=== PATIENT | female | born 1970 | race Caucasian/White ===

== ENCOUNTER 2023-12-16 09:36 | Inpatient (IN) | payer OTHER ==
[2023-12-16] VITALS (9 sets, daily range): BP systolic 114–129; BP diastolic 53–68; PULSE 62–84; RESP 16–18; TEMP 97.7–98.1; O2SAT 96–100
[~2023-12-16] VITALS: Ht 172.7 cm; Wt 90.7 kg
[~2023-12-16 09:36] MED LIST: ALLEGRA60 MG PO; BENADRYL 25 MG; KEPPRA250 MG PO; KEPPRA500 MG PO
[2023-12-16] MEDS ORDERED: [UNRECOGNIZED DRUG - OTHER] SC (12:33)
[2023-12-16] MEDS ORDERED: [UNRECOGNIZED DRUG - OTHER] TOP (12:33)
[2023-12-16] MEDS ORDERED: METHADONE HCL5 MG PO (12:33)
[2023-12-16] MEDS ORDERED: CLOBETASOL1 EA/15 GM PO (12:33)
[2023-12-16] MEDS ORDERED: VITAMIN D250 MC1 PO (12:33)
[2023-12-16] MEDS ORDERED: CYMBALTA30 MG PO ×2 (12:33)
[2023-12-16] MEDS ORDERED: ATORVASTATIN CA10 MG PO (12:33)
[2023-12-16] MEDS ORDERED: VITAMIN C500 MG PO (12:33)
[2023-12-16] MEDS ORDERED: MODAFINIL100 MG PO (12:33)
[2023-12-16] MEDS ORDERED: HYDRALAZINE HCL 20 MG/ML VIAL IV PRN (12:45)
[2023-12-16] MEDS ORDERED: ONDANSETRON HCL INJ 2MG/ML 2ML 2 MG/ML VIAL IV PRN (12:45)
[2023-12-16] MEDS ORDERED: BISACODYL 10 MG SUPP PR PRN (12:45)
[2023-12-16] MEDS ORDERED: ACETAMINOPHEN 325 MG TAB PO PRN (12:45)
[2023-12-16] MEDS ORDERED: Morphine 2mg Syringe 2 MG/ML SYR IV PRN (13:00)
[2023-12-16] MEDS ORDERED: CLINDAMYCIN PHOS 900MG/ 50ML 50 ML IV SCH (14:00)
[2023-12-16 15:15] LABS: BASOPHILS % 0.4 % (0.0-1.0); EOSINOPHILS # (AUTO) 0.1 (0.0-0.4); EOSINOPHILS % 2.4 % (0.0-6.0); HEMATOCRIT 41.2 % (34.2-44.1); HEMOGLOBIN 13.4 g/dL (12.0-16.0); LYMPHOCYTES # (AUTO) 1.8 (1.0-3.2); LYMPHOCYTES % 32.5 % (18.0-39.1); MEAN CORPUSCULAR HEMOGLOBIN 30.1 pg (28-32); MEAN CORPUSCULAR HGB CONC 32.5 g/dL (31-35); MEAN CORPUSCULAR VOLUME 92.6 fL (81-99); MONOCYTES # (AUTO) 0.4 (0.2-0.8); MONOCYTES % 6.5 % (4.4-11.3); NEUTROPHILS # (AUTO) 3.1 (2.1-6.9); PLATELET COUNT 146 x10e3/uL (140-360); RED BLOOD COUNT 4.45 x10e6/uL (3.6-5.1); WHITE BLOOD COUNT 5.39 x10e3/uL (4.8-10.8)
[2023-12-16] MEDS ORDERED: [UNRECOGNIZED DRUG - OTHER] SC SCH (15:15)
[2023-12-16 15:32] LABS: ALBUMIN 3.1 g/dL (3.5-5.0); ALBUMIN/GLOBULIN RATIO 0.7 (0.8-2.0); ANION GAP 14.1 mmol/L (8-16); BILIRUBIN,TOTAL 0.4 mg/dL (0.2-1.2); CREATININE, SERUM 0.74 mg/dL (0.57-1.11); POTASSIUM 4.1 mmol/L (3.5-5.1); TOTAL PROTEIN 7.3 g/dL (6.5-8.1)
[2023-12-16 15:51] LABS: ERYTHROCYTE SEDIMENTATION RATE 31 mm/hr (0-20)
[2023-12-16] MEDS ORDERED: ALBUTEROL 90 MCG/ACT INHALER INH PRN (16:30)
[2023-12-16] MEDS: HYDROCODONE/APAP 5MG-325MG TAB PO PRN (16:36)
[2023-12-16] MEDS ORDERED: DULOXETINE HCL 30 MG DELAYED RELEASE PO SCH ×2 (18:00→21:00)
[2023-12-16] MEDS: CLINDAMYCIN PHOS 900MG/ 50ML 50 ML IV SCH (18:21)
[2023-12-16] MEDS ORDERED: CLOBETASOL PROPIONATE 0.05% CRM 15 GM TUBE TOP PRN (18:30)
[2023-12-16] MEDS: DULOXETINE HCL 30 MG DELAYED RELEASE PO SCH (20:55)
[2023-12-16] MEDS: METHADONE HCL 5 MG TAB PO SCH (20:56)
[2023-12-16] MEDS: ATORVASTATIN 10 MG TAB PO SCH (20:56)
[2023-12-16] MEDS: LEVETIRACETAM 500 MG TAB PO SCH (21:00)
[2023-12-16] MEDS ORDERED: ATORVASTATIN 10 MG TAB PO SCH (21:00)
[2023-12-17] VITALS (7 sets, daily range): BP systolic 112–134; BP diastolic 57–79; PULSE 61–75; RESP 17–18; TEMP 97.5–98.1; O2SAT 98–100
[2023-12-17 05:54] LABS: BASOPHILS % 0.4 % (0.0-1.0); EOSINOPHILS # (AUTO) 0.2 (0.0-0.4); EOSINOPHILS % 3.4 % (0.0-6.0); HEMATOCRIT 36.8 % (34.2-44.1); HEMOGLOBIN 12.4 g/dL (12.0-16.0); LYMPHOCYTES # (AUTO) 2.2 (1.0-3.2); LYMPHOCYTES % 43.6 % (18.0-39.1); MEAN CORPUSCULAR HEMOGLOBIN 30.7 pg (28-32); MEAN CORPUSCULAR HGB CONC 33.7 g/dL (31-35); MEAN CORPUSCULAR VOLUME 91.1 fL (81-99); MONOCYTES # (AUTO) 0.4 (0.2-0.8); MONOCYTES % 8.3 % (4.4-11.3); NEUTROPHILS # (AUTO) 2.2 (2.1-6.9); NEUTROPHILS % 44.1 % (38.7-80.0); PLATELET COUNT 146 x10e3/uL (140-360); RED BLOOD COUNT 4.04 x10e6/uL (3.6-5.1); RED CELL DISTRIBUTION WIDTH 11.9 % (11.7-14.4); WHITE BLOOD COUNT 4.93 x10e3/uL (4.8-10.8)
[2023-12-17 06:13] LABS: ALBUMIN 2.8 g/dL (3.5-5.0); ALBUMIN/GLOBULIN RATIO 0.8 (0.8-2.0); ANION GAP 12.2 mmol/L (8-16); BILIRUBIN,TOTAL 0.4 mg/dL (0.2-1.2); CALCIUM 8.7 mg/dL (8.4-10.2); CREATININE, SERUM 0.67 mg/dL (0.57-1.11); POTASSIUM 4.2 mmol/L (3.5-5.1); TOTAL PROTEIN 6.5 g/dL (6.5-8.1)
[2023-12-17 07:12] LABS: CHOL/HDL RATIO 3.6 (3.0-3.6)
[2023-12-17] MEDS: MODAFINIL 100 MG TAB PO SCH (08:59)
[2023-12-17] MEDS: DOCUSATE SODIUM 100 MG CAP PO SCH (08:59)
[2023-12-17] MEDS: ASCORBIC ACID 500 MG TAB PO SCH (08:59)
[2023-12-17] MEDS: CHOLECALCIFEROL 1,000 UNIT TAB PO SCH (09:00)
[2023-12-17] MEDS ORDERED: DULOXETINE HCL 30 MG DELAYED RELEASE PO SCH (09:00)
[2023-12-17] MEDS: SENNOSIDES 8.6 MG TAB PO SCH (09:00)
[2023-12-17] MEDS ORDERED: LEVETIRACETAM 500 MG TAB PO SCH (09:00)
[2023-12-17] MEDS: DULOXETINE HCL 30 MG DELAYED RELEASE PO SCH ×2 (09:00→20:47)
[2023-12-17] MEDS ORDERED: MUPIROCIN 2% OINT 22 GM TUBE TOP SCH (09:00)
[2023-12-17] MEDS: MUPIROCIN 2% OINT 22 GM TUBE TOP SCH (09:01)
[2023-12-17] MEDS: KEPPRA 500 MG PO SCH (20:47)
[2023-12-17] MEDS: XYZAL 5 MG PO SCH (20:48)
[2023-12-18] VITALS (10 sets, daily range): BP systolic 104–127; BP diastolic 57–72; PULSE 64–82; RESP 16–18; TEMP 97.6–98.8; O2SAT 98–100
[2023-12-18] MEDS: Vancomycin IV 1 GM in SODIUM CHLORIDE 0.9% 250ML 250 ML IV SCH (13:39)
[2023-12-18] MEDS: DIPHENHYDRAMINE HCL INJ 50 MG/ML VIAL IV ONE (16:09)
[2023-12-18] MEDS: PREDNISONE 20 MG TAB PO ONE (16:09)
[2023-12-18] MEDS: SODIUM CHLORIDE 0.9% 250ML 250 ML ONE (19:32)
[2023-12-19] VITALS (12 sets, daily range): BP systolic 120–134; BP diastolic 56–73; PULSE 60–84; RESP 16–18; TEMP 97.4–98; O2SAT 96–100
[2023-12-19 06:21] LABS: BASOPHILS % 0.3 % (0.0-1.0); EOSINOPHILS # (AUTO) 0.1 (0.0-0.4); EOSINOPHILS % 0.8 % (0.0-6.0); HEMOGLOBIN 13.1 g/dL (12.0-16.0); LYMPHOCYTES % 26.2 % (18.0-39.1); MEAN CORPUSCULAR HEMOGLOBIN 30.3 pg (28-32); MEAN CORPUSCULAR HGB CONC 33.6 g/dL (31-35); MEAN CORPUSCULAR VOLUME 90.3 fL (81-99); MONOCYTES # (AUTO) 0.6 (0.2-0.8); MONOCYTES % 7.4 % (4.4-11.3); NEUTROPHILS # (AUTO) 5.1 (2.1-6.9); PLATELET COUNT 184 x10e3/uL (140-360); RED BLOOD COUNT 4.32 x10e6/uL (3.6-5.1); RED CELL DISTRIBUTION WIDTH 11.8 % (11.7-14.4); WHITE BLOOD COUNT 7.75 x10e3/uL (4.8-10.8)
[2023-12-19 06:59] LABS: ALBUMIN 3.1 g/dL (3.5-5.0); ALBUMIN/GLOBULIN RATIO 0.8 (0.8-2.0); ANION GAP 10.1 mmol/L (8-16); BILIRUBIN,TOTAL 0.3 mg/dL (0.2-1.2); CREATININE, SERUM 0.73 mg/dL (0.57-1.11); POTASSIUM 4.1 mmol/L (3.5-5.1); TOTAL PROTEIN 6.9 g/dL (6.5-8.1)
[2023-12-19] MEDS ORDERED: PROPOFOL IV EMULSION 10 MG/ML 20 ML VIAL ONE (09:17)
[2023-12-19] MEDS ORDERED: LIDOCAINE HCL 2% LOCAL INJ 5 ML SDV VIAL INJ ONE (09:17)
[2023-12-19] MEDS ORDERED: ONDANSETRON HCL INJ 2MG/ML 2ML 2 MG/ML VIAL ONE (09:17)
[2023-12-19] MEDS ORDERED: DEXAMETHASONE SOD PHOS INJ 4 MG/ML SDV ONE (09:17)
[2023-12-19] MEDS ORDERED: SODIUM CHLORIDE 0.9% INJ 10 ML VIAL ONE (09:19)
[2023-12-19] MEDS ORDERED: FENTANYL CITRATE/PF 100MCG/2 ML INJ ONE (10:44)
[2023-12-19] MEDS ORDERED: ROCURONIUM BROMIDE 1 ML IV ONE (10:44)
[2023-12-19] MEDS ORDERED: KETAMINE HCL INJ 50 MG/ML 10 ML VIAL ONE (10:44)
[2023-12-19] MEDS ORDERED: SUCCINYLCHOLINE CHLORIDE 20 MG/ML 10ML VIAL ONE (10:44)
[2023-12-19] MEDS ORDERED: ACETAMINOPHEN 1000 MG/100 ML 100 ML IV ONE (11:51)
[2023-12-19] MEDS ORDERED: BUPIVACAINE HCL 0.5% INJ 30 ML VIAL INJ ONE (11:59)
[2023-12-19 13:23] LABS: THYROID STIMULATING HORMONE 1.579 uIU/mL (0.350-4.940)
[2023-12-19] MEDS: DAPTOMYCIN 500mg 10ML 500 MG in SODIUM CHLORIDE 0.9% 100 ML IV SCH (16:27)
[2023-12-19] MEDS: DIPHENHYDRAMINE HCL INJ 50 MG/ML VIAL IV PRN (21:04)
[2023-12-20] VITALS (8 sets, daily range): BP systolic 111–128; BP diastolic 59–71; PULSE 67–85; RESP 16–18; TEMP 97.7–98.1; O2SAT 97–100
[2023-12-20] MEDS ORDERED: DIPHENHYDRAMINE HCL INJ 50 MG/ML VIAL IV PRN ×2 (05:00→05:30)
[2023-12-20 06:21] LABS: BASOPHILS # (AUTO) 0.1 (0.0-0.1); BASOPHILS % 0.5 % (0.0-1.0); EOSINOPHILS # (AUTO) 0.1 (0.0-0.4); EOSINOPHILS % 1.1 % (0.0-6.0); HEMOGLOBIN 13.3 g/dL (12.0-16.0); LYMPHOCYTES # (AUTO) 3.7 (1.0-3.2); LYMPHOCYTES % 33.6 % (18.0-39.1); MEAN CORPUSCULAR HEMOGLOBIN 30.4 pg (28-32); MEAN CORPUSCULAR HGB CONC 33.3 g/dL (31-35); MEAN CORPUSCULAR VOLUME 91.3 fL (81-99); MONOCYTES # (AUTO) 0.7 (0.2-0.8); NEUTROPHILS # (AUTO) 6.4 (2.1-6.9); NEUTROPHILS % 58.5 % (38.7-80.0); PLATELET COUNT 201 x10e3/uL (140-360); RED BLOOD COUNT 4.38 x10e6/uL (3.6-5.1); RED CELL DISTRIBUTION WIDTH 11.9 % (11.7-14.4)
[2023-12-20 06:52] LABS: ALBUMIN 3.1 g/dL (3.5-5.0); ALBUMIN/GLOBULIN RATIO 0.9 (0.8-2.0); ANION GAP 10.9 mmol/L (8-16); BILIRUBIN,TOTAL 0.4 mg/dL (0.2-1.2); CALCIUM 8.6 mg/dL (8.4-10.2); CREATININE, SERUM 0.71 mg/dL (0.57-1.11); POTASSIUM 3.9 mmol/L (3.5-5.1); TOTAL PROTEIN 6.6 g/dL (6.5-8.1)
[2023-12-21 01:36] VITALS: BP 121/54; PULSE 72; RESP 17; TEMP 97.8; O2SAT 98
[2023-12-21 05:05] VITALS: BP 108/49; PULSE 61; RESP 18; TEMP 97.5; O2SAT 98
[2023-12-21 06:22] VITALS: PULSE 82; RESP 21; O2SAT 95
[2023-12-21 08:35] VITALS: BP 122/66; PULSE 61; RESP 17; TEMP 97.6; O2SAT 100
[2023-12-21 09:00] VITALS: BP 130/74; PULSE 71; RESP 18; TEMP 98.7; O2SAT 98
[2023-12-21 11:42] VITALS: BP 134/81; PULSE 76; RESP 17; TEMP 97.6; O2SAT 100
[2023-12-21] MEDS ORDERED: LEVOFLOXACIN500 MG PO (13:23)
[2023-12-21] MEDS ORDERED: DOXYCYCLINE HY100 MG PO (13:23)
== END 2023-12-21 16:50 | disposition home or self-care (01) | DRG 571 ==
LOC: MED/SURG3 11:05
PROVIDERS: ADMIT Internal Medicine; ATTEND Internal Medicine
PROC: 02H633Z Insertion of Infusion Device into Right Atrium, Percutaneous Approach (ICD-10-PCS; 2023-12-16)
PROC: 0Y9N0ZZ Drainage of Left Foot, Open Approach (ICD-10-PCS; 2023-12-19)
PROC: 0JBR0ZZ Excision of Left Foot Subcutaneous Tissue and Fascia, Open Approach (ICD-10-PCS; 2023-12-19)
PROC: 0QBP0ZX Excision of Left Metatarsal, Open Approach, Diagnostic (ICD-10-PCS; principal; 2023-12-19 11:30)
DX: L02.612 Cutaneous abscess of left foot (principal); G61.81 Chronic inflammatory demyelinating polyneuritis; L03.116 Cellulitis of left lower limb; L97.528 Non-pressure chronic ulcer of other part of left foot with other specified severity; G62.9 Polyneuropathy, unspecified; E66.811 Obesity, class 1; Z68.30 Body mass index [BMI] 30.0-30.9, adult; E78.5 Hyperlipidemia, unspecified; Z79.85 Long-term (current) use of injectable non-insulin antidiabetic drugs; Z79.69 Long term (current) use of other immunomodulators and immunosuppressants; Z90.711 Acquired absence of uterus with remaining cervical stump; Z90.49 Acquired absence of other specified parts of digestive tract; Z88.0 Allergy status to penicillin; Z88.1 Allergy status to other antibiotic agents; Z88.7 Allergy status to serum and vaccine; Z88.6 Allergy status to analgesic agent; Z88.2 Allergy status to sulfonamides; Z88.5 Allergy status to narcotic agent
CPT/HCPCS: 36415; 36569; 71045; 71046; 80053; 80061; 82550; 83036; 83735; 84443; 85025; 85651; 86140; 87040; 87071; 87075; 87205; 88304; 88305; 88311; 93005; 93925; 93970; 94799; 99252; J0330; J0692; J1100; J1200; J2003; J2405; J7050; J7512

== ENCOUNTER → 2023-12-23 | Outpatient (REF) | payer OTHER ==
[~2023-12-23] MED LIST changes: +ATORVASTATIN CA10 MG PO; +CLOBETASOL1 EA/15 GM PO; +CYMBALTA30 MG PO; +DOXYCYCLINE HY100 MG PO; +LEVOFLOXACIN500 MG PO; +METHADONE HCL5 MG PO; +MODAFINIL100 MG PO; +VITAMIN C500 MG PO; +VITAMIN D250 MC1 PO; +[UNRECOGNIZED DRUG - OTHER] SC; +[UNRECOGNIZED DRUG - OTHER] TOP
== END ==
LOC: WCC 11:31
PROVIDERS: ATTEND Podiatrist Foot & Ankle Surgery
DX: S91.302D Unspecified open wound, left foot, subsequent encounter (principal); L03.116 Cellulitis of left lower limb; B96.89 Other specified bacterial agents as the cause of diseases classified elsewhere

== ENCOUNTER → 2023-12-30 | Outpatient (REF) | payer OTHER ==
[~2023-12-30] MED LIST changes: +MUPIROCIN 2% OINT 22 GM TUBE ONE; +TRYPSIN/BALSAM PERU/CASTOR OIL ONE
== END ==
LOC: WCC 14:04
PROVIDERS: ATTEND Podiatrist Foot & Ankle Surgery
DX: S91.302D Unspecified open wound, left foot, subsequent encounter (principal); L03.116 Cellulitis of left lower limb; M65.072 Abscess of tendon sheath, left ankle and foot; B96.89 Other specified bacterial agents as the cause of diseases classified elsewhere

== ENCOUNTER → 2024-01-20 | Outpatient (REF) | payer OTHER ==
[~2024-01-20] MED LIST changes: -MUPIROCIN 2% OINT 22 GM TUBE ONE; -TRYPSIN/BALSAM PERU/CASTOR OIL ONE
== END ==
LOC: WCC 14:31
PROVIDERS: ATTEND Podiatrist Foot & Ankle Surgery
DX: S91.302D Unspecified open wound, left foot, subsequent encounter (principal); L03.116 Cellulitis of left lower limb; M65.072 Abscess of tendon sheath, left ankle and foot; B96.89 Other specified bacterial agents as the cause of diseases classified elsewhere